=== PATIENT | female | born 1990 | race Caucasian/White ===

== ENCOUNTER → 2016-05-12 | Outpatient (CLI) | payer OTHER ==
[~2016-05-12] MED LIST: AZITHROMYCIN250 MG PO; PREDNISONE 10 M10 MG PO; PROTONIX20 MG PO; SINGULAIR10 MG PO; SYMBICORT 160-1 INHA INH; SYNTHROID 25 M25 MCG PO; VENTOLIN HFA 66.7 GM INH
== END ==
LOC: US 14:15
DX: N64.4 Mastodynia (principal)
CPT/HCPCS: 76641-LT; 76641-RT

== ENCOUNTER 2021-04-13 16:28 | Emergency (ER) | payer OTHER ==
[~2021-04-13 16:28] MED LIST changes: +COMBIVENT0.074 GM/I INH; +IPRAT-ALBUT 0.5-3 ML INH; +MEDROL DOSEPAK 24 MG PO; +OMNICEF 300 MG300 MG PO; +PAXIL20 MG PO; +PHENERGAN 12.12.5 M1 PO; +PREDNISONE 50 M50 MG PO; +SYNTHROID25 MCG PO; +TESSALON PERLE100 MG PO; +VITAMIN B-1000 MCG/M SC; +VITAMIN D35000 UNI1 PO; +ZITHROMAX250 MG PO
[2021-04-13 18:06] LABS: HEMOGLOBIN 15.1 gm/dl (12.3-15.3); RED BLOOD COUNT 4.61 M/UL (4.00-5.10); WHITE BLOOD COUNT 12.5 K/UL (4.5-11.0)
[2021-04-13 18:31] LABS: BUN/CREATININE RATIO 7 (0-10)
== END 2021-04-13 20:55 | disposition left against medical advice (07) ==
LOC: ER1 16:28
PROVIDERS: Family Medicine
DX: R11.0 Nausea (principal); R10.9 Unspecified abdominal pain; J45.909 Unspecified asthma, uncomplicated
CPT/HCPCS: 80053; 81001; 82150; 83690; 85025; 99281

== ENCOUNTER 2021-09-03 16:35 | Emergency (ER) | payer OTHER ==
[2021-09-03 17:29] LABS: HEMOGLOBIN 14.9 gm/dl (12.3-15.3); RED BLOOD COUNT 4.53 M/UL (4.00-5.10); WHITE BLOOD COUNT 6.1 K/UL (4.5-11.0)
[2021-09-03 17:56] LABS: BUN/CREATININE RATIO 7 (0-10)
[2021-09-03] MEDS ORDERED: TORADOL 10 MG T10 MG PO (19:15)
[2021-09-03] MEDS ORDERED: ZOFRAN 4 MG TAB4 MG PO (19:15)
== END 2021-09-03 20:00 | disposition home or self-care (01) ==
LOC: ER1 16:35
PROVIDERS: Physician Assistant Medical
DX: R10.9 Unspecified abdominal pain (principal); R11.0 Nausea; R42 Dizziness and giddiness; J45.909 Unspecified asthma, uncomplicated; F17.210 Nicotine dependence, cigarettes, uncomplicated
CPT/HCPCS: 80053; 81001; 83605; 84703; 85025; 87040; 96374; 96375; 99284; J1885; J2270; J2405